=== PATIENT | female | born 1945 | race Caucasian/White ===

== ENCOUNTER → 2016-12-12 | Outpatient (CLI) | payer MEDICARE ==
[~2016-12-12] MED LIST: ACYC5OIN4 TOPICAL; ASCO1CAP PO; ASPI81 PO; CALC250T PO; CALTTAB2 PO; ESTR42.5V VAGINAL; GABA300C5 PO; IP-6 INOSITOL PO; LEVO.075 PO; LISI-591 PO; LISI40TA PO; LORA-392 PO; MULT-65 PO; NEUR100C PO; NORV2.5T11 PO; OMEG12007 PO; PROBCAP4 OR; SACC1CAP3 PO; SULF1TAB47 PO; TAB-TAB PO; TURMPOW PO; VALA500 PO; VIT250TA PO; VITA1000 PO; VITA200C3 PO; VITALIQ PO; ZINC30CA OR; [UNRECOGNIZED DRUG - CODE] PO; [UNRECOGNIZED DRUG - CODE] PO; [UNRECOGNIZED DRUG - OTHER] PO
[2016-12-12 11:06] LABS: AUTOMATED NEUTROPHIL # 3.9 TH/MM3 (1.8-7.7); BASOPHIL # 0.1 TH/MM3 (0-0.2); EOSINOPHIL # 0.2 TH/MM3 (0-0.4); EOSINOPHIL % 3.6 % (0.0-4.0); HEMATOCRIT 41.3 % (35.0-46.0); HEMO FLAGS DIFF FINAL; LYMPH % 24.2 % (9.0-44.0); LYMPHOCYTE # 1.5 TH/MM3 (1.0-4.8); MEAN CORPUSCULAR HEMOGLOBIN 29.8 PG (27.0-34.0); MEAN CORPUSCULAR HGB CONC 33.4 % (32.0-36.0); MONO % 10.7 % (0.0-8.0); NEUT % 60.5 % (16.0-70.0); PLATELET COUNT 245 TH/MM3 (150-450); RED BLOOD COUNT 4.63 MIL/MM3 (4.00-5.30); RED CELL DISTRIBUTION WIDTH 13.1 % (11.6-17.2); WHITE BLOOD COUNT 6.4 TH/MM3 (4.0-11.0)
[2016-12-12 11:08] LABS: APTT (PATIENT) 26.8 SEC (24.3-30.1); PROTHROMBIN TIME - PATIENT 11.5 SEC (9.8-11.6)
--- NOTE | 2016-12-12 11:15 | RADRPT ---
EXAM DATE/TIME: 12/12/2016 10:44 [place] COMPARISON: No previous studies available for comparison. INDICATIONS : Evaluate for penumonia, pneumothorax, or communicable disease. Pre op for vulvar excision. MEDICAL HISTORY : None. SURGICAL HISTORY : None. ENCOUNTER: Initial ACUITY: 1 day PAIN SCORE: 0/10 LOCATION: chest FINDINGS: PA and lateral views of the chest demonstrate a normal-sized cardiac silhouette. There is no effusion , consolidation, or pneumothorax. The bones and soft tissues demonstrate no acute abnormality. CONCLUSION: No acute cardiopulmonary abnormality is identified. George Trent MD on December 12, 2016 at 11:12 Board Certified Radiologist. This report was verified electronically.
[2016-12-12 11:21] LABS: ANION GAP 5 MEQ/L (5-15); AST (GOT) 16 U/L (15-37); BLOOD UREA NITROGEN 16 MG/DL (7-18); CHLORIDE 104 MEQ/L (98-107); GLOMERULAR FILTRATION RATE 65 ML/MIN (>89); GLUCOSE,FASTING 76 MG/DL (74-99); POTASSIUM 4.6 MEQ/L (3.5-5.1); SODIUM (NA) 140 MEQ/L (136-145)
[2016-12-12 11:22] LABS: ALT (GPT) 18 U/L (10-53)
[2016-12-12 11:24] LABS: ALKALINE PHOSPHATASE 76 U/L (45-117); TOTAL BILIRUBIN ADULT 0.3 MG/DL (0.2-1.0)
--- NOTE | 2016-12-12 13:41 | EKG ---
Date Performed: 12/12/2016 Time Performed: 10:03:52 PTAGE: 71 years EKG: Sinus rhythm NORMAL ECG PREVIOUS TRACING : 03/14/2010 06.14 DOCTOR: David Rubio Interpretating Date/Time 12/12/2016 13:39:19
== END ==
LOC: CPRE 09:43
PROVIDERS: ATTEND Obstetrics & Gynecology Gynecologic Oncology
DX: Z01.810 Encounter for preprocedural cardiovascular examination (principal); Z01.811 Encounter for preprocedural respiratory examination; Z01.812 Encounter for preprocedural laboratory examination
CPT/HCPCS: 36415; 71020; 80053; 85025; 85610; 85730; 93005

== ENCOUNTER → 2016-12-19 | Day surgery (SDC) | payer MEDICARE ==
[~2016-12-19] VITALS: Ht 162.6 cm; Wt 77.4 kg
[~2016-12-19] MED LIST changes: +ACETAMINOPHEN 1000 MG/100 ML 100 ML IV ONE; -ASPI81 PO; -CALTTAB2 PO; +CHLORHEXIDINE GLUCONATE 2 % 1 PACK (2 CLOTHS) TOPICAL PRN; +DEXAMETHASONE SOD PHOS 4 MG/ML VIAL IV ONE; +DO NOT ADM ANY ANTICOAGULANT DRUGS PRN; +GLYCOPYRROLATE 1 MG/5 ML SYRINGE IV PUSH ONE; +INSULIN HUMAN REGULAR 1,000 UNITS/10 ML VIAL SQ PRN; -IP-6 INOSITOL PO; +KETOROLAC TROMETHAMINE 30 MG/ML (IVP) VIAL IV PUSH ONE; +KETOROLAC TROMETHAMINE 30 MG/ML (IVP) VIAL IV PUSH SCH; +LACTATED RINGER'S 1000 ML IV PRN; +LIDOCAINE 1%/EPINEPHrine 1:100,000 SOLN 50 ML VIAL ONE; +LIDOCAINE HCL 1% 50 ML VIAL ONE; +LIDOCAINE HCL 1% PF 5 ML AMPULE OTHER ONE; -LISI-591 PO; -LORA-392 PO; +METOPROLOL TARTRATE 25 MG TAB PO PRN; +MIDAZOLAM HCL 2 MG/2 ML VIAL IV ONE; +NEOSTIGMINE 3 MG/3 ML SYR IV ONE; -NEUR100C PO; -NORV2.5T11 PO; +ONDANSETRON HCL 4 MG/2 ML VIAL IV PUSH ONE; -PROBCAP4 OR; +PROPOFOL 200 MG/20 ML AMP IV ONE; +ROCURONIUM INJ 50 MG/5 ML SYRINGE IV PUSH ONE; +SODIUM CHLORID 0.9% 500 ML IV PRN; -SULF1TAB47 PO; -TAB-TAB PO; -TURMPOW PO; -VALA500 PO; -VIT250TA PO; -VITALIQ PO; -ZINC30CA OR; -[UNRECOGNIZED DRUG - CODE] PO; -[UNRECOGNIZED DRUG - CODE] PO; -[UNRECOGNIZED DRUG - OTHER] PO; +ePHEDrine/NS 25 MG/5 ML SYR IV ONE; +metroNIDAZOLE 500 MG INJ 100 ML IV ONE
[2016-12-19 14:00] VITALS: BP 136/72; PULSE 55; RESP 16; TEMP 97.5; O2SAT 99
--- NOTE | 2016-12-20 22:15 | MP ---
cc: MJ LOJA KELLY L. MD GUPTA, ANJALI MD DATE OF SURGERY 12/19/2016 PREOPERATIVE DIAGNOSIS 1. Pigmented vulvar lesion. 2. Ulcerative irritated vulvar lesion. POSTOPERATIVE DIAGNOSIS 1. Pigmented vulvar lesion. 2. Ulcerative irritated vulvar lesion. PROCEDURE Examination under anesthesia, extensive wide local excision of the vulva. 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 She has noticed a pigmented lesion in the midline and above the ventral vulva near the mons pubis with some irritation and chronic itching that has worsened and most noted on the right ventral vulva, especially around the 9 o'clock to 11 o'clock position. She was seen and counseled regarding options and wanted symptomatic relief as well as diagnostic clarification. I recommended wide local excision x2 as the area of irritation seemed to be by normal appearing skin from the pigmented nevus, although they were in close proximity so much so that she thought the symptoms were coming from the pigmented area. She is seen again in the preop holding area where the findings are discussed. She reports that she has some diffuse irritation and itching and it seems to have crossed the midline ventrally and is troubling her. I explained that the objectives would be to surgically remove the areas that appear abnormal and have been causing her great symptoms. If she has diffuse vulvitis, this will not be resolved surgically, but it is hoped that by addressing the most symptomatic area and by removing that tissue we can get histopathologic clarification. The pathology would clarify the presence or absence of malignancy and my suspicion for malignancy is low but not zero. It would also clarify if she has an underlying dermatologic condition for which treatment recommendations could be made based on that diagnosis that would ultimately help alleviate her symptomatology. Discussion ensued. She expressed good understanding and agreed to move forward. FINDINGS On exam under anesthesia, the findings are as described in the office. There is a small pigmented area in the ventral vulva near the mons pubis. There is ulceration, erythema and some thickening of the skin but fusing and thinning of the labia from the 9 o'clock to 11 o'clock position on the right vulva. There are similar changes that extend across the midline over to the left side and there is also some diffuse atrophic changes, irritation and some fusing and minimal scarring and irritation of the labia diffusely. PROCEDURE IN DETAIL She was taken to the operating room, placed in dorsal lithotomy position. After general endotracheal anesthesia was administered, time-out was undertaken. She was identified by sight recognition and hospital ID [email or web address] and the proposed procedure was reviewed and confirmed. She was carefully positioned in padded Bladimir stirrups. Arms were secured out to the side. Exam under anesthesia was performed with findings as described above. She was prepped and draped in sterile fashion. Dilute acetic acid is applied which allowed some additional highlight of the affected areas. Now on exam the area of irritation and excoriation was continued to include the pigmented area such that there was no normal-appearing skin between these two and across the midline ventrally to the ventral left vulva and it was felt that the best course of action to remove the affected area and for a more thorough tissue sampling would be to do a single wide local excision in an inverted V shaped excision to remove the affected tissue. An outline was made with a surgical marker with elliptical excision along the ventral right and left vulva extending above the midline ventral to the clitoral raza toward the mons pubis. Lidocaine epinephrine injected. Scalpel was used to outline the excision. Sharp dissection was used to remove the skin and margin of subcutaneous tissue circumferentially. Specimen was labeled ventral vulva 12 o'clock suture which corresponded to the mons pubis margin. The deep edges were reapproximated with interrupted 3-0 Vicryl sutures until the skin edges were in close proximity without tension and then the skin edges were closed with interrupted 3-0 Vicryl sutures which rendered the skin edges completely hemostatic, well-approximated. All significant grossly abnormal tissue had been removed and satisfactory cosmetic result. Preliminary and final counts were correct. There were no remaining foreign objects in the vagina. She was returned to dorsal supine position and was pending reversal of anesthesia when I left the operating room to precede her to the Post Anesthesia Care Unit. MD EVIE Rodriguez/ /2:41 PM /9:54 PM
== END | disposition home or self-care (01) ==
LOC: HSDC 09:00
PROVIDERS: ATTEND Obstetrics & Gynecology Gynecologic Oncology
DX: L28.0 Lichen simplex chronicus (principal)
CPT/HCPCS: 00940; 11426; 86850; 86900; 86901; 88305; J0131; J1100; J1885; J2250; J2405; J2710; J3010